=== PATIENT | female | born 1960 | race Caucasian/White ===

== ENCOUNTER 2017-09-08 12:23 | Observation (INO) | payer OTHER ==
[~2017-09-08] VITALS: Ht 157.5 cm; Wt 76.6 kg
[~2017-09-08 12:23] MED LIST: B COMPLETE1 EACH PO; DAILY VITE1 EAC1 PO; ECOTRIN325 MG PO; INVOKAMET 50-51 EACH PO; LOSARTAN POTASS25 MG PO; PEPCID40 MG PO; PREDNISONE50 MG PO; TRULICITY0.75 MG/0. SC; ZYRTEC10 M3 PO
[2017-09-08 16:22] LABS: HEMOGLOBIN 15.4 G/DL (11.9-15.5); MCH 28.2 PG (29.0-34.0); MCV 80.6 FL (83-99); PLATELET COUNT 215 K/uL (156-360); RBC DIS.WIDTH-SD 34.5 % (39-53); RED BLOOD COUNT 5.46 M/uL (3.80-5.20); WHITE BLOOD COUNT 5.7 K/uL (4.1-10.2)
[2017-09-08 16:33] LABS: ALBUMIN 3.8 g/dL (3.2-4.8); CHLORIDE 103 mEq/L (99-109); POTASSIUM 3.6 mEq/L (3.7-5.4); SODIUM 138 mEq/L (136-147)
[2017-09-08 16:35] LABS: GLUCOSE 243 mg/dL (70-99); TOTAL PROTEIN 7.1 g/dL (6.4-8.3)
[2017-09-08 16:37] LABS: TOTAL BILIRUBIN 1.1 mg/dL (0.0-1.0)
[2017-09-08 16:38] LABS: INTER. NORMALIZED RATIO 1.1; SERUM ETHYL ALCOHOL < 10 mg/dL
[2017-09-08 16:39] LABS: ALKALINE PHOSPHATASE 147 IU/L (3-129); CREATININE 0.7 mg/dL (0.6-1.3); GFR ESTIMATE (CALCULATED) > 59 mL/min/
[2017-09-08 16:40] LABS: AST (GOT) 48 IU/L (2-34); UREA NITROGEN (BUN) 8 mg/dL (9-23)
[2017-09-08 16:41] LABS: PTT 28.7 SEC (25-37)
[2017-09-08 16:42] LABS: ALT (GPT) 56 IU/L (3-49); CREATINE KINASE 98 IU/L (1-294)
[2017-09-08 16:53] LABS: TROP-I INTERPRETATION NEGATIVE; TROPONIN-I < 0.01 ng/mL (0.0-0.30)
[2017-09-08 21:40] VITALS: BP 184/92
[2017-09-08 22:08] LABS: HDL CHOLESTEROL 32 MG/DL (Desirable>=50); LDL CHOLESTEROL 104 mg/dL (Desirable<100); NON-HDL CHOLESTEROL 134 mg/dL (Desirable<160); TOTAL CHOLESTEROL 166 mg/dL (Desirable<200); TRIGLYCERIDES 152 MG/DL (Normal: <150)
[2017-09-08 23:36] VITALS: BP 205/88
[2017-09-09] VITALS (7 sets, daily range): BP systolic 135–737; BP diastolic 73–90
[2017-09-09 05:45] LABS: HEMATOCRIT 39.7 % (36.0-46.0); HEMOGLOBIN 13.3 G/DL (11.9-15.5); MCH 27.5 PG (29.0-34.0); MCHC 33.5 G/DL (30.0-36.0); MCV 82.2 FL (83-99); PLATELET COUNT 184 K/uL (156-360); RBC DIS.WIDTH-SD 35.8 % (39-53); RED BLOOD COUNT 4.83 M/uL (3.80-5.20); WHITE BLOOD COUNT 5.1 K/uL (4.1-10.2)
[2017-09-09 05:57] LABS: CHLORIDE 100 MEQ/L (99-109); CREATININE 0.7 MG/DL (0.6-1.3); GFR ESTIMATE (CALCULATED) > 59 mL/min/; SODIUM 134 MEQ/L (136-147); UREA NITROGEN (BUN) 11 mg/dL (9-23)
[2017-09-09 06:00] LABS: GLUCOSE 367 mg/dL (70-99)
[2017-09-09 12:24] LABS: HEMOGLOBIN A1c (GLYCOHEMOGLOB) 10.6 % (Below 5.7)
[2017-09-10 03:33] VITALS: BP 142/67
[2017-09-10 07:44] VITALS: BP 164/84
[2017-09-10 11:09] VITALS: BP 162/70
[2017-09-10] MEDS ORDERED: AMLODIPINE BESYL5 MG PO (14:55)
[2017-09-10] MEDS ORDERED: LOSARTAN POTASS25 MG PO (14:55)
[2017-09-10] MEDS ORDERED: METHOCARBAMOL500 MG PO (14:55)
[2017-09-10] MEDS ORDERED: NORCO 5/3251 TABLET PO (14:58)
[2017-09-10] MEDS ORDERED: ASPIR-LOW81 MG PO (14:58)
[2017-09-10] MEDS ORDERED: MECLIZINE HCL25 MG PO (15:02)
[2017-09-10] MEDS ORDERED: TRULICITY0.75 MG/0. SC (15:03)
[2017-09-10 15:29] VITALS: BP 158/84
== END 2017-09-10 18:41 | disposition home or self-care (01) ==
LOC: EME 12:23 → 3EAST 19:40 → EDOF 19:40 → ENRESERV 19:42 → 3EAST 20:53
PROVIDERS: Emergency Medicine; Hospitalist; Physician Assistant
DX: G44.309 Post-traumatic headache, unspecified, not intractable (principal); F07.81 Postconcussional syndrome; S40.012A Contusion of left shoulder, initial encounter; M25.812 Other specified joint disorders, left shoulder; H81.10 Benign paroxysmal vertigo, unspecified ear; E11.65 Type 2 diabetes mellitus with hyperglycemia; Z79.4 Long term (current) use of insulin; Z91.14 Patient's other noncompliance with medication regimen; I10 Essential (primary) hypertension; B19.20 Unspecified viral hepatitis C without hepatic coma; Z86.73 Personal history of transient ischemic attack (TIA), and cerebral infarction without residual deficits; R79.89 Other specified abnormal findings of blood chemistry; E66.9 Obesity, unspecified; Z68.31 Body mass index [BMI] 31.0-31.9, adult; Z96.651 Presence of right artificial knee joint; F17.210 Nicotine dependence, cigarettes, uncomplicated; W07.XXXA Fall from chair, initial encounter; Y93.89 Activity, other specified; Y92.009 Unspecified place in unspecified non-institutional (private) residence as the place of occurrence of the external cause; Z82.49 Family history of ischemic heart disease and other diseases of the circulatory system; Z80.1 Family history of malignant neoplasm of trachea, bronchus and lung; Z79.82 Long term (current) use of aspirin
CPT/HCPCS: 70450; 70551; 71260; 72040; 72125; 73010; 73030; 73200; 80048; 80053; 80061; 82550; 82550 91; 82948; 83036; 84484; 85027; 85610; 85730; 93880; 99281; 99285; G0378; G0480; G8978 GP CJ; G8979 GP CH; J0360; J1644; J1815; J1885; J2060